=== PATIENT | female | born 1950 | race Caucasian/White ===

== ENCOUNTER → 2016-11-22 | Outpatient (CLI) | payer MEDICARE ==
--- NOTE | 2016-11-22 11:29 | MR ---
EXAMINATION TYPE: MR cervical spine wo con DATE OF EXAM: 11/22/2016 COMPARISON: CT soft tissue neck 03/07/2014 HISTORY: Neck pain,DDD TECHNIQUE: Multiplanar, multisequence images of the cervical spine were acquired. C2-C3: No evidence for degenerative disc disease. No disc bulge/herniation or protrusion. No Canal stenosis. Foramina are patent bilaterally. C3-C4: There is mild left-sided foraminal encroachment due to lateral extension of endplate disc comp lolly. No significant central stenosis or sizable disc herniation. C4-C5: Posterior extension in the right paracentral location with small posterior disc herniation cau ses some contact with the anterior cervical cord. Circumferential extension of endplate disc complex results in some mild left-sided foraminal encroachment. Axial images show some questionable hyperinte nsity within the cervical cord to the left midline although this is not identified with certainty and sagittal images. I question whether this may be artifactual. C5-C6: Posterior extension of endplate disc complex results in moderate central canal stenosis, left lateral posterior extension of endplate disc complex causes anterolateral mass effect on the thecal s ac, there is foraminal encroachment bilaterally due to circumferential extension of endplate disc com plex. Difficult to exclude some cord signal change. C6-C7: Posterior broad-based disc bulge causes minimal anterior mass effect on the thecal sac. C7-T1: No evidence for degenerative disc disease. No disc bulge/herniation or protrusion. No Canal stenosis. Foramina are patent bilaterally. Cervical segments are intact. There is minimal anterolisthesis grade 1 C2-3, C3-4, retrolisthesis gr pretty 1 C5-6, C6-7. Cervical vertebral bodies show preserved height. There is multilevel spondylosis w ith endplate discogenic marrow signal change, loss of disc height and signal is greatest at C4-5, C5- 6. Craniovertebral junction relationships are within normal limits. IMPRESSION: Multilevel degenerative disc disease, spinal stenosis, foraminal encroachment. Questionable cord sign al change may be artifactual as described. Correlate for possible myelopathy.
== END | disposition home or self-care (01) ==
LOC: RADMRIMAIN 10:41
PROVIDERS: ATTEND Family Medicine
DX: M48.02 Spinal stenosis, cervical region (principal); M50.30 Other cervical disc degeneration, unspecified cervical region
CPT/HCPCS: 72141

== ENCOUNTER → 2017-03-11 | Outpatient (CLI) | payer MEDICARE ==
--- NOTE | 2017-03-11 14:56 | BD ---
EXAMINATION TYPE: MG DEXA axial skeleton. DATE OF EXAM: 03/11/2017 COMPARISON: DEXA bone scan June 21, 2011 CLINICAL HISTORY: Osteoporosis per order. Postmenopausal female Height: 59 inches Weight: 182 FRAX RISK QUESTIONS: Alcohol (3 or more units per day): no Family History (Parent hip fracture): no Glucocorticoids (More than 3mos): no (Ex: prednisone, prednisolone, methylprednisolone, dexamethasone, and hydrocortisone). History of Fracture in Adulthood: no Secondary Osteoporosis: 1. Type 1 Diabetes: no 2. Hyperthyroidism: no 3. Menopause before 45: yes 4. Malnutrition: no 5. Chronic liver disease: no Rheumatoid Arthritis: no Current Tobacco Use: yes RISK FACTORS HISTORY OF: Hip Fracture (Right/Left): no Spine Fracture: no History of Wrist Fracture: no Surgery to Spine/Hip(right/left)/Wrist (right/left): left hip replacement When: 2004 Family History of Osteoporosis: no Active: yes Diet low in dairy products/other sources of calcium: yes Postmenopausal woman: total hysterectomy age 37 Lost more than 2 inches in height since high school: no Frequent falls: no Poor Health: no Hyperparathyroidism: no Adrenal Insufficiency: no MEDICATIONS: atenolol, water pil simvastatin, aspirin, vit d , multi-vit, ativan Additional History: EXAM MEASUREMENTS: Bone mineral densitometry was performed using the Endovention System. Bone mineral density as measured about the Lumbar spine is: ----- L1-L4(G/cm2): 1.184 T Score Values are as follows: ----- L2: -1.5 ----- L3: -0.5 ----- L4: 2.6 ----- L1-L4: 0.0 Bone mineral density has: increased 5.9 % since study of: 06.21.2011 Bone mineral density about the R hip (g/cm2): 0.923 T Score values are as follows: -----R Neck: -0.8 -----R Total: -1.0 Bone mineral density has: decreased -15.1 % since study of: 06.21.2011 IMPRESSION: Osteopenia (T Score between -2.5 and -1 as noted by T score values at 2 consecutive levels in the low back remains present. Bone density is noted however increased or improved from prior. There remains slightly increased risk of fracture and the patient may be considered for treatment. Re-Screen 2-5 ye ars. NOTE: T-SCORE=SD OF THE YOUNG ADULT MEAN.
--- NOTE | 2017-03-12 10:18 | MM ---
Reason for exam: screening (asymptomatic). Last mammogram was performed 1 year and 2 months ago. History: Patient is postmenopausal. Took hormonal contraceptives for 13 years. Physical Findings: A clinical breast exam by your physician is recommended on an annual basis and results should be correlated with mammographic findings. MG Screening Mammo w CAD Bilateral CC and MLO view(s) were taken. Prior study comparison: August 13, 2013, bilateral digital screening mammo w/CAD. There are scattered fibroglandular densities. Finding: There are typically benign round, linear calcifications in both breasts, left greater than right. There is no discrete abnormality. ASSESSMENT: Benign, BI-RAD 2 RECOMMENDATION: Routine screening mammogram of both breasts in 1 year.
== END | disposition home or self-care (01) ==
LOC: RADMAMWWP 11:41
PROVIDERS: ATTEND Family Medicine
DX: Z12.31 Encounter for screening mammogram for malignant neoplasm of breast (principal); M85.88 Other specified disorders of bone density and structure, other site
CPT/HCPCS: 77080; G0202

== ENCOUNTER → 2017-03-17 | Outpatient (CLI) | payer MEDICARE ==
--- NOTE | 2017-03-17 13:59 | XR ---
EXAMINATION TYPE: XR chest 2V DATE OF EXAM: 03/17/2017 COMPARISON: NONE HISTORY: Shortness of breath TECHNIQUE: Frontal and lateral views of the chest are obtained. FINDINGS: Scattered senescent parenchymal changes noted. Hyperinflation compatible with COPD. No evidence for infiltrate. No evidence for atelectasis. Heart size is stable. Mediastinal structures are stable and grossly unremarkable. No evidence for hilar prominence. Degenerative changes dorsal spine. IMPRESSION: 1. No evidence for acute pulmonary disease.
== END | disposition home or self-care (01) ==
LOC: RADXRMAIN 13:42
PROVIDERS: ATTEND Family Medicine
DX: Z01.818 Encounter for other preprocedural examination (principal)
CPT/HCPCS: 71020

== ENCOUNTER → 2017-08-01 | Outpatient (CLI) | payer MEDICARE ==
[2017-08-01 11:41] LABS: HCT 43.4 % (34.0-46.0); HGB 15.1 gm/dL (11.4-16.0); MCH 30.8 pg (25.0-35.0); MCHC 34.7 g/dL (31.0-37.0); MCV 88.8 fL (80.0-100.0); Mean Platelet Volume 6.6; Platelet Count 239 k/uL (150-450); RBC 4.89 m/uL (3.80-5.40); RDW 12.7 % (11.5-15.5); WBC 6.6 k/uL (3.8-10.6)
[2017-08-01 11:46] LABS: Appearance,Urine Clear (Clear); Bacteria,Urine Rare /hpf; Bilirubin,Urine Negative (Negative); Blood,Urine Trace (Negative); Color,Urine Yellow; Glucose,Urine (UA) Negative (Negative); Ketones,Urine Negative (Negative); Leukocyte Esterase,Urine Negative (Negative); Mucus,Urine Rare /hpf; Nitrite,Urine Negative (Negative); PH, Urine 7.5 (5.0-8.0); Protein,Urine Negative (Negative); RBC,Urine 5 /hpf (0-5); Specific Gravity,Urine 1.013 (1.001-1.035); Squamous Epithelial Cell,Urine <1 /hpf (0-4); Urobilinogen,Urine <2.0 mg/dL (<2.0); WBC,Urine 1 /hpf (0-5)
[2017-08-01 12:06] LABS: ALT 29 U/L (9-52); AST 26 U/L (14-36); Albumin 4.3 g/dL (3.5-5.0); Alkaline Phosphatase 83 U/L (38-126); Anion Gap 12 mmol/L; Blood Urea Nitrogen 16 mg/dL (7-17); Calcium 10.2 mg/dL (8.4-10.2); Carbon Dioxide 29 mmol/L (22-30); Chloride 100 mmol/L (98-107); Glucose 106 mg/dL (74-99); Potassium 4.7 mmol/L (3.5-5.1); Sodium 141 mmol/L (137-145); Total Bilirubin 0.8 mg/dL (0.2-1.3); Total Protein 7.2 g/dL (6.3-8.2)
[2017-08-01 12:11] LABS: INR 1.1 (<1.2); Partial Thromboplastin Time 23.1 sec (22.0-30.0); Prothrombin Time 10.4 sec (9.0-12.0)
== END | disposition home or self-care (01) ==
LOC: LABPAT 10:58
PROVIDERS: ATTEND Orthopaedic Surgery
DX: Z01.812 Encounter for preprocedural laboratory examination (principal); M16.11 Unilateral primary osteoarthritis, right hip; Z79.01 Long term (current) use of anticoagulants
CPT/HCPCS: 80053; 81001; 85027; 85610; 85730; 87070

== ENCOUNTER → 2018-03-05 | Outpatient (CLI) | payer MEDICARE ==
--- NOTE | 2018-03-05 15:12 | MR ---
EXAMINATION TYPE: MR brain wo/w con DATE OF EXAM: 03/05/2018 COMPARISON: NONE HISTORY: Dystonia / Tremor per order TECHNIQUE: Multiplanar, multisequence images of the brain and brainstem is performed without and with IV contras t, utilizing 8.5 mL intravenous Gadavist . FINDINGS: Diffusion weighted images demonstrate no evidence of a recent infarct or other diffusion ab normality. There is no worrisome extra-axial fluid collection. The ventricular system and cisternal spaces are normal in size and appearance. The brain volume is age appropriate. Cavum vergae is pres ent which is anatomical variant. There are few scattered foci of T2 hyperintensity seen throughout th e superficial and deep white matter. Approximately 6-8 small scattered lesions are seen. For referenc e there is 4 mm high right frontal lesion axial image 25. Midline structures demonstrate normal morphology. The craniocervical junction appears within normal limits. Post contrast images demonstrate no abnormal enhancement. Suspect hypoplastic left P1 segmen t with filling of P2 segment due to patent persistent posterior communicating artery. Normal variant. The dural venous sinuses appear patent. The visualized sinuses are clear and the globes are intact. IMPRESSION: Mild to minimal white matter changes most likely on basis of product of chronic small ves lindsey ischemic change in patient of this age. No suspicious enhancement is seen.
== END | disposition home or self-care (01) ==
LOC: RADMRIMAIN 11:23
PROVIDERS: ATTEND Physical Medicine & Rehabilitation
DX: R90.89 Other abnormal findings on diagnostic imaging of central nervous system (principal); M48.02 Spinal stenosis, cervical region; M50.11 Cervical disc disorder with radiculopathy, high cervical region; M43.12 Spondylolisthesis, cervical region; M47.22 Other spondylosis with radiculopathy, cervical region; R25.1 Tremor, unspecified
CPT/HCPCS: 70553; A9585

== ENCOUNTER → 2018-03-31 | Outpatient (CLI) | payer MEDICARE ==
--- NOTE | 2018-04-02 13:44 | MM ---
Reason for exam: screening (asymptomatic). Last mammogram was performed 1 year and 1 month ago. History: Patient is postmenopausal. Took hormonal contraceptives for 13 years. Physical Findings: A clinical breast exam by your physician is recommended on an annual basis and results should be correlated with mammographic findings. MG 3D Screening Mammo W/Cad Bilateral CC and MLO view(s) were taken. Prior study comparison: March 11, 2017, bilateral MG screening mammo w CAD. January 19, 2016, bilateral MG 3d screening mammo w/cad. The breast tissue is almost entirely fat. No significant changes when compared with prior studies. ASSESSMENT: Negative, BI-RAD 1 RECOMMENDATION: Routine screening mammogram of both breasts in 1 year.
== END ==
LOC: RADMAMWWP 16:32
PROVIDERS: ATTEND Family Medicine
DX: Z12.31 Encounter for screening mammogram for malignant neoplasm of breast (principal)
CPT/HCPCS: 77063; 77067

== ENCOUNTER → 2019-04-09 | Outpatient (CLI) | payer MEDICARE ==
[2019-04-09 10:37] LABS: African American GFR (CKD) >90 (>60 ml/min/1.73 sqM); Blood Urea Nitrogen 15 mg/dL (7-17); Non-African American GFR(CKD) 90 (>60 ml/min/1.73 sqM)
--- NOTE | 2019-04-09 18:12 | CT ---
EXAMINATION TYPE: CT abdomen pelvis w con DATE OF EXAM: 04/09/2019 COMPARISON: 01/24/2016 INDICATION: Microscopic hematuria. Left renal cyst. DLP: 1230.5 mGycm, Automated exposure control for dose reduction was used. CONTRAST: 100 mL of Isovue 300. Study performed with Oral Contrast TECHNIQUE: Axial images were obtained from above the diaphragm to the pubic rami in the axial plane a t 5 mm thick sections. Reconstructed images are reviewed on the computer in the coronal plane. FINDINGS: Limited CT sections are obtained the lung bases. The lung bases are clear. Coronary artery calcific ation is present. CT ABDOMEN: Liver: There may be some mild fatty infiltration. There is a calcification adjacent which may be a gr anuloma at the lung base or calcification along the diaphragm. Image 13 series 3 Spleen: Normal Pancreas: Normal Adrenal glands: The adrenal glands are normal. Gallbladder: Few small gallstones are present. Kidneys: No masses are evident. No hydronephrosis is present. Small cortical renal cysts on the pos terior left kidney. Delayed images were obtained through the kidneys, which remain unremarkable. Aorta: Vascular calcification is within the aorta. Inferior vena cava: Normal. CT PELVIS: There is limitation due to the lower pelvis due to beam hardening artifact from bilateral hip prostheses. A few diverticular changes are noted within the sigmoid colon. Note is made of a very tiny mesenteric fat containing periumbilical hernia. Loops of bowel within the abdomen and pelvis are normal. There are loops of bowel which are incom pletely distended or lack oral contrast limiting their evaluation. Appendix: Normal as visualized. Urinary bladder: Normal. Genitourinary structures: Uterus and ovaries are not identified. Osseous structures: No suspicious lytic or sclerotic lesions. IMPRESSIONS: 1. Mild fatty infiltration of the liver. 2. Cholelithiasis. 3. Left renal cyst 4. Diverticulosis
== END | disposition home or self-care (01) ==
LOC: RADCTMAIN 09:44
PROVIDERS: ATTEND Urology
DX: K76.0 Fatty (change of) liver, not elsewhere classified (principal); K80.20 Calculus of gallbladder without cholecystitis without obstruction; K57.90 Diverticulosis of intestine, part unspecified, without perforation or abscess without bleeding; N28.1 Cyst of kidney, acquired; R31.1 Benign essential microscopic hematuria; Z88.2 Allergy status to sulfonamides
CPT/HCPCS: 82565; 84520; 74177; 36415; Q9967 ×2

== ENCOUNTER → 2019-05-19 | Outpatient (CLI) | payer MEDICARE ==
--- NOTE | 2019-05-20 13:52 | MM ---
Reason for exam: screening (asymptomatic). Last mammogram was performed 1 year and 2 months ago. History: Patient is postmenopausal. Took hormonal contraceptives for 13 years. Physical Findings: A clinical breast exam by your physician is recommended on an annual basis and results should be correlated with mammographic findings. MG 3D Screening Mammo W/Cad Bilateral CC and MLO view(s) were taken. Prior study comparison: March 31, 2018, bilateral MG 3d screening mammo w/cad. March 11, 2017, bilateral MG screening mammo w CAD. There are scattered fibroglandular densities. There is no discrete abnormality. No significant changes when compared with prior studies. ASSESSMENT: Negative, BI-RAD 1 RECOMMENDATION: Routine screening mammogram of both breasts in 1 year.
== END | disposition home or self-care (01) ==
LOC: RADMAMWWP 16:27
PROVIDERS: ATTEND Family Medicine
DX: Z12.31 Encounter for screening mammogram for malignant neoplasm of breast (principal)
CPT/HCPCS: 77063; 77067

== ENCOUNTER → 2020-01-12 | Outpatient (CLI) | payer MEDICARE ==
[2020-01-12 15:33] LABS: HCT 47.2 % (34.0-46.0); HGB 15.6 gm/dL (11.4-16.0); MCH 30.3 pg (25.0-35.0); MCHC 33.1 g/dL (31.0-37.0); MCV 91.7 fL (80.0-100.0); Mean Platelet Volume 6.5; Platelet Count 244 k/uL (150-450); RBC 5.14 m/uL (3.80-5.40); WBC 6.8 k/uL (3.8-10.6)
[2020-01-12 15:45] LABS: African American GFR (CKD) >90 (>60 ml/min/1.73 sqM); Anion Gap 6 mmol/L; Blood Urea Nitrogen 12 mg/dL (7-17); Carbon Dioxide 29 mmol/L (22-30); Chloride 99 mmol/L (98-107); Non-African American GFR(CKD) >90 (>60 ml/min/1.73 sqM); Potassium 4.1 mmol/L (3.5-5.1); Sodium 134 mmol/L (137-145)
== END | disposition home or self-care (01) ==
LOC: LABPAT 14:26
PROVIDERS: ATTEND Internal Medicine Interventional Cardiology
DX: Z01.818 Encounter for other preprocedural examination (principal); I25.10 Atherosclerotic heart disease of native coronary artery without angina pectoris
CPT/HCPCS: 80051; 82565; 84520; 85027

== ENCOUNTER → 2020-06-22 | Outpatient (CLI) | payer MEDICARE ==
[2020-06-22 18:28] LABS: Albumin 4.2 g/dL (3.80-4.90); Albumin/Globulin Ratio 1.4 (1.60-3.17); Anion Gap 8.9 mmol/L (4.00-12.00); BUN/Creat Ratio 21.43 Ratio (12.00-20.00); Calcium 10.1 mg/dL (8.7-10.3); Carbon Dioxide 29.1 mmol/L (21.6-31.8); Chol/HDL Ratio 3.07; LDL Cholesterol,Calculated 74.2 mg/dL (0.0-131.0); Non-African American GFR(CKD) 87.2 (60.0-200.0); Potassium 3.9 mmol/L (3.5-5.5); Total Bilirubin 1.3 mg/dL (0.3-1.2); Total Protein 7.2 g/dL (6.2-8.2); VLDL Calculation 37.8 mg/dL (5.00-40.00)
== END | disposition home or self-care (01) ==
LOC: LABWHC1 08:13
PROVIDERS: ATTEND Internal Medicine Interventional Cardiology
DX: E78.2 Mixed hyperlipidemia (principal)
CPT/HCPCS: 36415; 80053; 80061

== ENCOUNTER → 2020-08-18 | Outpatient (CLI) | payer MEDICARE ==
--- NOTE | 2020-08-18 12:35 | CTL ---
EXAMINATION TYPE: CT Low Dose Lung DATE OF EXAM ORDERED: 08/18/2020 COMPARISON: None HISTORY: . Low Dose CT Lung Screening CT DLP: [address] CTDI: 2.22 mGy IV CONTRAST USED: None. SCREENING VISIT: First visit COMPARISON: None. TECHNIQUE: Low dose computed tomography scan was performed through the chest at 1 millimeter thick se ctions and reconstructed images in the coronal plane at [address] DIAGNOSTIC QUALITY: Satisfactory FINDINGS: LUNG NODULES: 6 mm nodule right upper lobe posteriorly image #10. 3 mm nodule right lower lobe image #17. 3 mm nodule right mid lung zone image 23. Calcified nodule left lower lobe image 38. LUNGS: COPD: Severity: None Fibrosis: Severity:None Lymph nodes: None Other findings: None RIGHT PLEURAL SPACE: Effusion: None Calcification: None Thickening: None Pneumothorax: None LEFT PLEURAL SPACE: Effusion: None Calcification: None Thickening: None Pneumothorax: None HEART: Heart Size: Mildly enlarged Coronary calcification: Moderate Pericardial effusion: None OTHER FINDINGS: Upper abdomen: Cholelithiasis. Bony thorax: Degenerative changes Supraclavicular region: No significant abnormalityOther: No significant abnormalityI IMPRESSION: Benign FOLLOW UP CT CHEST RECOMMENDATION: Follow-up screening in one year CT LUNG RAD: LUNG RAD CATEGORY 2 benign appearance
== END | disposition home or self-care (01) ==
LOC: RADCTMAIN 11:18
PROVIDERS: ATTEND Family Medicine
DX: Z12.2 Encounter for screening for malignant neoplasm of respiratory organs (principal)
CPT/HCPCS: 71271

== ENCOUNTER → 2021-02-01 | Outpatient (CLI) | payer MEDICARE ==
[2021-02-02 03:01] LABS: African American GFR (CKD) 105.1 (60.0-200.0); Albumin 4.6 g/dL (3.8-4.9); Albumin/Globulin Ratio 1.87 (1.60-3.17); Anion Gap 14.6 mmol/L (4.00-12.00); BUN/Creat Ratio 15.57 Ratio (12.00-20.00); Blood Urea Nitrogen 9.7 mg/dL (9.0-27.0); Calcium 9.3 mg/dL (8.7-10.3); Carbon Dioxide 24.9 mmol/L (21.6-31.8); Chol/HDL Ratio 3.64 Ratio; Globulin 2.5 g/dL (1.6-3.3); HDL Cholesterol 51.1 mg/dL (40.00-60.00); LDL Cholesterol,Calculated 80.5 mg/dL (0.0-131.0); Non-African American GFR(CKD) 90.7 (60.0-200.0); Total Bilirubin 0.9 mg/dL (0.30-1.20); VLDL Calculation 54.4 mg/dL (5.00-40.00)
== END | disposition home or self-care (01) ==
LOC: LABWHC1 11:25
PROVIDERS: ATTEND Internal Medicine Interventional Cardiology
DX: E78.2 Mixed hyperlipidemia (principal)
CPT/HCPCS: 36415; 80053; 80061

== ENCOUNTER → 2021-08-13 | Outpatient (CLI) | payer MEDICARE ==
[2021-08-13 18:11] LABS: ALT 16 U/L (8-44); AST 25 U/L (13-35); Chol/HDL Ratio 3.08 Ratio; LDL Cholesterol,Calculated 76.8 mg/dL (0.0-131.0)
== END | disposition home or self-care (01) ==
LOC: LABWHC1 11:35
PROVIDERS: ATTEND Nurse Practitioner Adult Health
DX: E78.2 Mixed hyperlipidemia (principal)
CPT/HCPCS: 36415; 80061; 84450; 84460

== ENCOUNTER → 2021-09-21 | Outpatient (CLI) | payer MEDICARE ==
--- NOTE | 2021-09-25 08:23 | MM ---
Reason for Exam: Screening (asymptomatic). Last mammogram was performed 2 year(s) and 4 month(s) ago. Patient History: Menarche at age 11. First Full-Term at age 20. Left ovary removed at age 38. Right ovary removed at age 38. Hysterectomy at age 38. Postmenopausal. Patient used Hormonal Contraceptives for 13 years. Risk Values: Maria De Jesus 5 year model risk: 1.6%. NCI Lifetime model risk: 4.1%. Film Views: Bilateral CC views were taken. Bilateral MLO views were taken. Prior Study Comparison: 03/11/2017 Bilateral Screening Mammogram, [facility]. 03/31/2018 Bilateral Screening Mammogram, [facility]. 05/19/2019 Bilateral Screening Mammogram, [facility]. Tissue Density: There are scattered fibroglandular densities. Findings: Analyzed By CAD. There are regional benign appearing round and linear calcifications anteriorly in the left breast redemonstrated. Stable chronic nodularity centrally in the left breast. There is no suspicious group of microcalcifications or new suspicious mass in either breast. Overall Assessment: Benign, BI-RAD 2 Management: Screening Mammogram of both breasts in 1 year. A clinical breast exam by your physician is recommended on an annual basis and results should be correlated with mammographic findings. Electronically signed and approved by: Marvin Simmons M.D.
== END | disposition home or self-care (01) ==
LOC: RADMAMWWP 15:47
PROVIDERS: ATTEND Family Medicine
DX: Z12.31 Encounter for screening mammogram for malignant neoplasm of breast (principal); Z78.0 Asymptomatic menopausal state
CPT/HCPCS: 77063; 77067

== ENCOUNTER → 2021-12-07 | Outpatient (CLI) | payer MEDICARE ==
--- NOTE | 2021-12-07 13:33 | BD ---
EXAMINATION TYPE: Axial Bone Density DATE OF EXAM: 12/07/2021 COMPARISON: 03.11.2017 CLINICAL HISTORY: 71 years year old Female. ICD-10 CODE: M85.80 OSTEOPENIA Height: 59IN Weight: 195 FRAX RISK QUESTIONS: Secondary Osteoporosis: 3. Menopause before 45: YES TOTAL HYST AT 33 Current Tobacco Use: YES RISK FACTORS HISTORY OF: Surgery to Spine/Hip(right/left)/Wrist (right/left): RENITA HIP REPLACEMENT When: 2004 AND 2016 Active: NO Postmenopausal woman: YES Lost more than 2 inches in height since high school: YES Poor Health: FAIR MEDICATIONS: Additional Medications: BP MEDS, CHOLESTEROL MEDS, CARDIAC MEDS, CALCIUM, VITAMIN D Additional History: EXAM MEASUREMENTS: Bone mineral densitometry was performed using the Drawn to Scale System. Bone mineral density as measured about the Lumbar spine is: ----- L1-L4(G/cm2): 1.130 T Score Values are as follows: ----- L1: -1.3 ----- L2: -1.3 ----- L3: 0.6 ----- L4: 0.4 ----- L1-L4: -0.4 Bone mineral density has: Increased 6.0% since study of: 03.11.2017 Bone mineral density about the L Wrist (g/cm2): 0.543 T Score values are as follows: -----Dist. R+U: -1.9 -----Prox. R+U: -1.1 -----Radius total: -1.9 FIRST WRIST DEXA IMPRESSION: Osteopenia (T Score between -2.5 and -1). There is slightly increased risk of fracture and the patient may be considered for treatment. Re-Screen 2-5 years. NOTE: T-SCORE=SD OF THE YOUNG ADULT MEAN.
== END | disposition home or self-care (01) ==
LOC: RADBDWWP 11:11
PROVIDERS: ATTEND Family Medicine
DX: M85.89 Other specified disorders of bone density and structure, multiple sites (principal)
CPT/HCPCS: 77080

== ENCOUNTER → 2021-12-12 | Outpatient (CLI) | payer MEDICARE ==
--- NOTE | 2021-12-12 13:49 | CTL ---
EXAMINATION TYPE: CT Low Dose Lung DATE OF EXAM ORDERED: 12/12/2021 HISTORY: Z87.891 personal hx tobacco use. Lung cancer screening CT DLP: 83.[address] CTDI: 2.4 mGy Automated exposure control for dose reduction was used. SCREENING VISIT: Follow-up COMPARISON: CT low dose lung screening 08/18/2020. TECHNIQUE: Low dose computed tomography scan was performed through the chest at 1 mm thick sections a nd reconstructed images in multiple planes at 1 mm and [address] DIAGNOSTIC QUALITY: Satisfactory FINDINGS: LUNG NODULES: Stable 6 pulmonary right upper lobe posteriorly pulmonary nodule (series 4, image 42). Stable right lower lobe 3 mm pulmonary nodule (series 4, image 73). Stable 3 mm right midlung pulmona ry nodule (series 4, image 112). Calcified 3 mm nodule within the left lower lobe (series 4, image 18 7). No new or enlarging pulmonary nodules. LUNGS: COPD: Severity: None Fibrosis: Severity: None Lymph nodes: None Other findings: Nonspecific left lower lobe subpleural reticular opacities. RIGHT PLEURAL SPACE: Effusion: None Calcification: None Thickening: None Pneumothorax: None LEFT PLEURAL SPACE: Effusion: None Calcification: None Thickening: None Pneumothorax: None HEART: Heart Size: Mildly enlarged. Coronary Calcification: Moderate Pericardial Effusion: None OTHER FINDINGS: Upper abdomen: Cholelithiasis. Bony thorax: Degenerative changes of the visualized spine. Supraclavicular region: None Other: 1.2 cm hypodense left thyroid lobe nodule. IMPRESSION: Stable pulmonary nodules measuring up to 6 mm. No new or enlarging pulmonary nodules. CT LUNG RAD AND CT CHEST RECOMMENDATION: Lung-Rad 2 Benign Appearance or Behavior: Continue annual sc reening with LDCT in 12 months. S Modifier (other clinically significant findings): None
== END | disposition home or self-care (01) ==
LOC: RADCTMAIN 13:00
PROVIDERS: ATTEND Family Medicine
DX: Z12.2 Encounter for screening for malignant neoplasm of respiratory organs (principal); R91.8 Other nonspecific abnormal finding of lung field; Z87.891 Personal history of nicotine dependence
CPT/HCPCS: 71271

== ENCOUNTER → 2022-02-15 | Outpatient (CLI) | payer MEDICARE ==
[2022-02-15 18:07] LABS: ALT 19 U/L (8-44); AST 20 U/L (13-35); African American GFR (CKD) 100.3 (60.0-200.0); Albumin 4.7 g/dL (3.8-4.9); Albumin/Globulin Ratio 1.88 (1.60-3.17); Alkaline Phosphatase 104 U/L (41-126); BUN/Creat Ratio 18.86 Ratio (12.00-20.00); Blood Urea Nitrogen 13.2 mg/dL (9.0-27.0); Calcium 9.7 mg/dL (8.7-10.3); Carbon Dioxide 29.1 mmol/L (20.0-27.5); Chloride 95 mmol/L (96-109); Chol/HDL Ratio 3.07 Ratio; Globulin 2.5 g/dL (1.6-3.3); Glucose 113 mg/dL (70-110); LDL Cholesterol,Calculated 82.4 mg/dL (0.0-131.0); Non-African American GFR(CKD) 86.6 (60.0-200.0); Potassium 4.9 mmol/L (3.5-5.5); Sodium 135 mmol/L (135-145); Total Protein 7.2 g/dL (6.2-8.2)
== END | disposition home or self-care (01) ==
LOC: LABWHC1 11:27
PROVIDERS: ATTEND Internal Medicine Interventional Cardiology
DX: I10 Essential (primary) hypertension (principal); E78.2 Mixed hyperlipidemia
CPT/HCPCS: 36415; 80053; 80061

== ENCOUNTER → 2022-08-19 | Outpatient (CLI) | payer MEDICARE ==
--- NOTE | 2022-08-20 07:11 | US ---
EXAMINATION TYPE: US axilla LT DATE OF EXAM: 08/19/2022 COMPARISON: NONE CLINICAL INDICATION: Female, 72 years old with history of R59.0 AXILLARY LYMPHADENOPATHY; Pt states s he has had a lump on her left armpit for months and it varies in size. She states she has squeezed it before and a white pus comes out TECHNIQUE: Scanned in area of lump. I could see it bulging out when she lifted her left arm. FINDINGS: Hypoechoic nonvascular area with posterior enhancement visualized in area of lump measurin g 0.8 x 0.7 x 0.4cm IMPRESSION: Probable sebaceous cyst however strict clinical correlation is advised.
== END | disposition home or self-care (01) ==
LOC: RADUSWWP 16:54
PROVIDERS: ATTEND Family Medicine
DX: R59.0 Localized enlarged lymph nodes (principal)

== ENCOUNTER → 2022-09-04 | Outpatient (CLI) | payer MEDICARE ==
[2022-09-04 21:09] LABS: ALT 29 U/L (8-44); AST 25 U/L (13-35); Chol/HDL Ratio 2.58 Ratio; LDL Cholesterol,Calculated 72.4 mg/dL (0.0-131.0)
== END | disposition home or self-care (01) ==
LOC: LABWHC1 12:03
PROVIDERS: ATTEND Internal Medicine Interventional Cardiology
DX: E78.2 Mixed hyperlipidemia (principal)
CPT/HCPCS: 36415; 80061; 84450; 84460

== ENCOUNTER → 2022-09-24 | Outpatient (CLI) | payer MEDICARE ==
--- NOTE | 2022-09-25 19:27 | MM ---
Reason for Exam: Screening (asymptomatic). Last screening mammogram was performed 12 month(s) ago. Patient History: Menarche at age 11. First Full-Term at age 20. Left ovary removed at age 38. Right ovary removed at age 38. Hysterectomy at age 38. Postmenopausal. Patient used Hormonal Contraceptives for 13 years. Risk Values: Maria De Jesus 5 year model risk: 1.6%. NCI Lifetime model risk: 3.9%. Prior Study Comparison: 03/31/2018 Bilateral Screening Mammogram, [facility]. 05/19/2019 Bilateral Screening Mammogram, [facility]. 09/21/2021 Bilateral MG 3D screening mammo w/cad, [facility]. Tissue Density: There are scattered fibroglandular densities. Findings: Analyzed By CAD. Redemonstrated benign secretory calcifications, left greater than right. There is no suspicious group of microcalcifications or new suspicious mass in either breast. Overall Assessment: Benign, BI-RAD 2 Management: Screening Mammogram of both breasts in 1 year. . Patient should continue monthly self-breast exams. A clinical breast exam by your physician is recommended on an annual basis. This exam should not preclude additional follow-up of suspicious palpable abnormalities. Note on Maria De Jesus scores and lifetime risk: 1. A Maria De Jesus score greater than 3% is considered moderate risk. If this is the case, consider specialist referral to assess eligibility for a risk reducing agent. 2. If overall lifetime risk for the development of breast cancer is 20% or higher, the patient may qualify for future screening with alternating mammogram and breast MRI. Electronically signed and approved by: Greta Avelar M.D. Radiologist
== END | disposition home or self-care (01) ==
LOC: RADMAMWWP 14:21
PROVIDERS: ATTEND Family Medicine
DX: Z12.31 Encounter for screening mammogram for malignant neoplasm of breast (principal); Z78.0 Asymptomatic menopausal state
CPT/HCPCS: 77063; 77067

== ENCOUNTER → 2022-12-19 | Outpatient (CLI) | payer MEDICARE ==
--- NOTE | 2022-12-19 13:02 | CTL ---
EXAMINATION TYPE: CT Low Dose Lung DATE OF EXAM ORDERED: 12/19/2022 HISTORY: Z12.2 ENCNTR SCREEN FOR MALIGNANT NEOZ87.891,Z72.0. Lung cancer screening CT DLP: [address] CTDI: 26 mGy Automated exposure control for dose reduction was used. SCREENING VISIT: Follow-up COMPARISON: CT low-dose lung cancer screening 12/12/2021, 08/18/2020 TECHNIQUE: Low dose computed tomography scan was performed through the chest at 1 mm thick sections a nd reconstructed images in multiple planes at 1 mm and [address] DIAGNOSTIC QUALITY: Satisfactory FINDINGS: LUNG NODULES: Stable 6 mm right upper lobe posteriorly pulmonary nodule (series 8, image 10). Stable right lower lobe 3 mm pulmonary nodule (series 8, image 16). Stable 3 mm right midlung pulmonary nodu le (series 8, image 22). Calcified 3 mm nodule within the left lower lobe (series 8, image 36). No ne w or enlarging pulmonary nodules. LUNGS: COPD: Severity: None Fibrosis: Severity: None Lymph nodes: None Other findings: None RIGHT PLEURAL SPACE: Effusion: None Calcification: None Thickening: None Pneumothorax: None LEFT PLEURAL SPACE: Effusion: None Calcification: None Thickening: None Pneumothorax: None HEART: Heart Size: Mildly enlarged. Coronary Calcification: Moderate Pericardial Effusion: None OTHER FINDINGS: Upper abdomen: Cholelithiasis. Bony thorax: Degenerative changes of the visualized spine. No acute osseous abnormality. Supraclavicular region: None Other: None IMPRESSION: Stable pulmonary nodules measuring up to 6 mm. No new or enlarging pulmonary nodules. CT LUNG RAD AND CT CHEST RECOMMENDATION: Lung-Rad 2 Benign Appearance or Behavior: Continue annual sc reening with LDCT in 12 months. S Modifier (other clinically significant findings): None
== END | disposition home or self-care (01) ==
LOC: RADCTMAIN 12:12
PROVIDERS: ATTEND Family Medicine
DX: Z12.2 Encounter for screening for malignant neoplasm of respiratory organs (principal); F17.210 Nicotine dependence, cigarettes, uncomplicated; R91.8 Other nonspecific abnormal finding of lung field
CPT/HCPCS: 71271

== ENCOUNTER → 2023-03-07 | Outpatient (CLI) | payer MEDICARE ==
[2023-03-07 18:20] LABS: ALT 29 U/L (8-44); AST 25 U/L (13-35); Albumin 4.5 g/dL (3.8-4.9); Albumin/Globulin Ratio 2.14 Ratio (1.60-3.17); Alkaline Phosphatase 117 U/L (41-126); BUN/Creat Ratio 15.43 Ratio (12.00-20.00); Blood Urea Nitrogen 10.8 mg/dL (9.0-27.0); Calcium 9.6 mg/dL (8.7-10.3); Carbon Dioxide 27.3 mmol/L (21.6-31.8); Chloride 101 mmol/L (96-109); Chol/HDL Ratio 2.83 Ratio; Globulin 2.1 g/dL (1.6-3.3); Glucose 126 mg/dL (70-110); LDL Cholesterol,Calculated 70.9 mg/dL (0.0-131.0); Potassium 4.6 mmol/L (3.5-5.5); Sodium 140 mmol/L (135-145); Total Bilirubin 0.9 mg/dL (0.3-1.2); Total Protein 6.6 g/dL (6.2-8.2)
== END | disposition home or self-care (01) ==
LOC: LABWHC1 13:16
PROVIDERS: ATTEND Internal Medicine Interventional Cardiology
DX: E78.2 Mixed hyperlipidemia (principal)
CPT/HCPCS: 36415; 80053; 80061

== ENCOUNTER → 2023-07-02 | Outpatient (CLI) | payer MEDICARE ==
--- NOTE | 2023-07-03 12:54 | MR ---
EXAMINATION TYPE: MR lumbar spine wo con DATE OF EXAM: 07/02/2023 2:30 PM COMPARISON: NONE HISTORY: Low back pain, fall Multiplanar, MultiSpin echo imaging of the lumbar spine was performed. Mild acute inferior endplate compression fracture involving T12 with loss of height of less than 5%. No bony retropulsion. L1-L2: Normal disc appearance without desiccation. No herniation, protrusion or disc bulging. No ca nal stenosis is present. Foramina are patent bilaterally. L2-L3: Normal disc appearance without desiccation. No herniation, protrusion or disc bulging. No ca nal stenosis is present. Foramina are patent bilaterally. L3-L4: Moderate disc desiccation. Posterior disc bulge is mild effacement ventral thecal sac. No evid ence for herniation or central stenosis. Neural foramina are patent bilaterally. L4-L5: Moderate disc desiccation. Posterior disc bulge is mild effacement ventral thecal sac. No evid ence for herniation or central stenosis. Neural foramina are patent bilaterally. L5-S1: Moderate disc desiccation. Posterior disc bulge is mild effacement ventral thecal sac. No evid ence for herniation or central stenosis. Neural foramina are patent bilaterally. Grade 1 retrolisthes is measuring 4 mm L5 on S1. Lumbar segments are intact. No paraspinal masses are identified. Conus medullaris has a normal appe arance. IMPRESSION: 1. Mild acute inferior endplate compression fracture involving T12 with loss of height of less than 5 %. No bony retropulsion. 2. Multilevel degenerative disc disease and disc bulging.
== END | disposition home or self-care (01) ==
LOC: RADMRIMAIN 12:59
PROVIDERS: ATTEND Physical Medicine & Rehabilitation
DX: S22.080A Wedge compression fracture of T11-T12 vertebra, initial encounter for closed fracture (principal); M51.36 Other intervertebral disc degeneration, lumbar region
CPT/HCPCS: 72148

== ENCOUNTER → 2023-09-16 | Outpatient (CLI) | payer MEDICARE ==
[2023-09-16 20:48] LABS: ALT 31 U/L (8-44); AST 25 U/L (13-35); Chol/HDL Ratio 2.63 Ratio
== END | disposition home or self-care (01) ==
LOC: LABWHC1 13:55
PROVIDERS: ATTEND Internal Medicine Interventional Cardiology
DX: E78.2 Mixed hyperlipidemia (principal)
CPT/HCPCS: 36415; 80061; 84450; 84460

== ENCOUNTER → 2023-12-08 | Outpatient (CLI) | payer MEDICARE | END | disposition home or self-care (01) | LOC: LABWHC1 15:48 | PROVIDERS: ATTEND Orthopaedic Surgery | CPT/HCPCS: 87070 ==

== ENCOUNTER 2023-12-22 07:13 | Day surgery (SDC) | payer MEDICARE ==
[~2023-12-22 07:13] MED LIST: TRANEXAMIC 1,000 MG/100ML-NACL 1,000 MG in SALINE 1 100ML.BAG IVPB PRN
[2023-12-22] MEDS: ACETAMINOPHEN TAB 500 MG TAB PO PRN (08:12)
[2023-12-22] MEDS: MELOXICAM 7.5 MG TAB PO PRN (08:13)
[2023-12-22] MEDS: GABAPENTIN 300 MG CAP PO PRN (08:13)
[2023-12-22] MEDS: ONDANSETRON 4 MG/2 ML VIAL IVP PRN (08:14)
[2023-12-22] MEDS: DEXAMETHASONE SOD PHOSPHATE 4 MG/ML 1 ML VIAL IVP STA (08:15)
[2023-12-22] MEDS: LACTATED RINGERS 1,000 ML BAG IV STA (08:15)
[2023-12-22] MEDS: IV FLUID CONTINUATION 1,000 ML IV ONE (08:18)
[2023-12-22] MEDS ORDERED: HYDROmorphone 0.5 MG/0.5 ML SYRINGE IVP PRN ×3 (08:40→09:12)
[2023-12-22] MEDS ORDERED: METOCLOPRAMIDE 5 MG/ML 2 ML VIAL IVP PRN (08:40)
[2023-12-22] MEDS ORDERED: LIDOCAINE 1% (10MG/ML) FOR IV START INTRADERMA PRN (08:40)
[2023-12-22] MEDS: MIDAZOLAM 2 MG/2 ML VIAL IVP ONE (09:10)
[2023-12-22] MEDS: fentaNYL (PF) 50 MCG/ML 2 ML AMP IVP ONE (09:10)
[2023-12-22] MEDS ORDERED: NA PHOS,M-B/NA PHOS,DI-BA 133 ML ENEMA RECTAL PRN (09:12)
[2023-12-22] MEDS ORDERED: NALOXONE 0.4 MG/ML 1 ML VIAL IV PRN (09:12)
[2023-12-22] MEDS ORDERED: ONDANSETRON 4 MG/2 ML VIAL IVP PRN (09:12)
[2023-12-22] MEDS ORDERED: bisacodyL 10 MG SUPP RECTAL PRN (09:12)
[2023-12-22] MEDS ORDERED: MAGNESIUM HYDROXIDE 2,400 MG/30 ML CUP PO PRN (09:12)
--- NOTE | 2023-12-22 09:37 | P.ANPRN ---
Procedure Note - Anesthesia - Nerve Block Performed Right Adductor Canal Infusion Time Out Performed: Yes ([id number]) Date of Procedure: 12/22/23 Procedure Start Time: 09:11 Procedure Stop Time: 09:16 Location of Patient: PreOp Indication: Acute Post-Operative Pain, Requested by Surgeon Specifically requested for management of pain by DrHardeep: Hernan Ortiz Sedation Type: Sedate with meaningful contact maintained Preparation: Sterile Prep, Sterile Dressing Position: Supine Catheter Depth at Skin (cm): 9 Catheter: Indwelling Needle Types: Pajunk Needle Gauge: 18 Ultrasound used to visualize needle placement: Yes Ultrasound used to observe medication spread: Yes Injectate: 0.5% Ropivacaine (see comment for volume) (15cc +10cc nacl pf) Blood Aspirated: No Pain Paresthesia on Injection Noted: No Resistance on Injection: Normal Image Stored and Saved: Yes Events: Uneventful and Well Tolerated
--- NOTE | 2023-12-22 09:38 | P.ANPRN ---
Procedure Note - Anesthesia - Nerve Block Performed Right iPack Single Time Out Performed: Yes ([id number]) Date of Procedure: 12/22/23 Procedure Start Time: :17 Procedure Stop Time: :20 Location of Patient: PreOp Indication: Acute Post-Operative Pain, Requested by Surgeon Specifically requested for management of pain by DrHardeep: Hernan Ortiz Sedation Type: Sedate with meaningful contact maintained Preparation: Sterile Prep Position: Supine Catheter: None Needle Types: Pajunk Needle Gauge: 21 Ultrasound used to visualize needle placement: Yes Ultrasound used to observe medication spread: Yes Injectate: 0.5% Ropivacaine (see comment for volume) (15cc+10cc nacl pf) Blood Aspirated: No Pain Paresthesia on Injection Noted: No Resistance on Injection: Normal Image Stored and Saved: Yes Events: Uneventful and Well Tolerated
[2023-12-22] MEDS ORDERED: PROPOFOL 10 MG/ML 20 ML VIAL IV ONE (09:41)
[2023-12-22] MEDS ORDERED: TRANEXAMIC 1,000 MG/100ML-NACL PREMIX BAG ONE (09:41)
[2023-12-22] MEDS ORDERED: MIDAZOLAM 2 MG/2 ML VIAL ONE (09:41)
[2023-12-22] MEDS ORDERED: ROPIVACAINE 5 MG/ML 30 ML VIAL ONE (09:41)
[2023-12-22] MEDS ORDERED: PHENYLEPHRINE 10 MG/ML VIAL ONE (09:41)
[2023-12-22] MEDS: ceFAZolin 1,000 MG in SODIUM CHLORIDE 0.9% 1,000 ML IRRIGATION ONE (09:45)
[2023-12-22] MEDS: LACTATED RINGERS 1,000 ML IV ONE (10:33)
--- NOTE | 2023-12-22 11:01 | P.OP ---
Date of Procedure: 12/22/23 Preoperative Diagnosis: Severe osteoarthritis right knee Postoperative Diagnosis: Severe osteoarthritis right knee Procedure(s) Performed: Right total knee arthroplasty Implants: Valdez [employer] Nephew Journey II CR Oxinium cruciate retaining femoral component size 3, right [employer] Journey nonporous tibial baseplate size 2, right [employer] Journey II, XLPE Deep Dished articular insert, size 13 mm, Size 1-2, right [employer] Journey Liberty II resurfacing patellar component, oval, 29 mm All components were cemented using Palacos R bone cement The articulation is Oxinium on polyethylene Anesthesia: spinal Surgeon: Hernan Ortiz Guest Specialist #1: Earnestine Bunch Estimated Blood Loss (ml): 25 Pathology: none sent Condition: stable Disposition: PACU Indications for Procedure: The patient's knee is end-stage, and conservative management has failed. The operation of knee replacement has been discussed at length in the office, as well as potential risks and complications. These are inclusive of, but not limited to: Infection, bleeding, scarring, discomfort, stiffness, blood vessel and nerve damage, need for further surgery, failure to relieve symptoms, persistence, recurrence, or worsening of problems, loosening, dislocation, wear, blood clot, pulmonary embolism, , gait dysfunction, stiffness, and other risks as discussed in the office. Patient elects to proceed and the consent form has been signed. Operative Findings: The operative findings are consistent with severe osteoarthritis of the right knee Description of Procedure: The patient was seen in the preoperative area, the consent was reviewed and the operative site was marked with a skin marker. The patient verified the procedure and the operative site. An adductor canal pain catheter and an iPACK block were placed by anesthesia in the preoperative area. The patient was then brought to the operating room and positioned on the operating room table in the supine position. Preoperative antibiotics and a gram of tranexamic acid were given intravenously. A spinal anesthetic was administered by the anesthesia department. Care was taken to make sure that all pressure points were adequately padded. A tourniquet was placed on the upper thigh and the lower extremity was prepped with ChloraPrep and draped in usual sterile fashion. A universal time-out was then performed which confirmed the patient's name, surgical site, ALLERGIES, and consent. The lower extremity was then exsanguinated and tourniquet was inflated to 250 mmHg. A standard anterior midline approach to the knee was performed. The skin and subcutaneous tissue were sharply dissected down to the patellar tendon. A medial parapatellar arthrotomy was then performed. The knee was then extended, the patellar was everted, and the knee was flexed. The infra-patellar fat pad was removed in order to enhance exposure. The anterior horns of both menisci were excised, and a release was performed to the posterior medial aspect of the knee. On gross visual inspection, there was complete loss of articular cartilage in the medial and patellofemoral joint spaces. There was also significant cartilage damage in the lateral compartment. There were multiple periarticular osteophytes globally about the knee which were then removed with a Ronguer. The femoral canal was then opened with the 9.5 mm intramedullary drill. The 8 mm intramedullary jacquie was then inserted into the femoral canal with the distal femoral cutting guide set for 5 of valgus. The distal femoral cutting block was then pinned in place. The intramedullary jacquie was then removed, and the distal femur was then cut. The cutting block was then removed and the cut was checked for symmetry. The resected bone was then measured to confirm the appropriate distal femoral resection. Next, the sizing guide was then placed and set for 3 external rotation based off of the epicondylar axis and Nelson's line. Pins were then placed and the drill holes, and the femur was sized with the sizing stylus. The pins were then removed, and the sizing guide was then removed. The spikes of the appropriate size femoral block was then placed into the predrilled holes, and malleted into place. Two 45 mm pins were then placed into the fixation holes on the cutting block. An julia wing was then used to ensure there would be no notching with the anterior cut. The anterior condyles were cut without notching. The anterior chord cut was then performed, followed by the posterior cut, posterior chamfer cut, and the anterior chamfer cut. The collateral ligaments were protected during the entire process. The cutting block was then removed. Any remaining bone and osteophytes were removed from the femur with a Ronguer. Attention was then directed to the tibia. The remaining ACL was removed with a Ronguer, and the tibia was then gently subluxed forward with a large bent knee retractor. Any remaining menisci were excised. The posterior lateral corner was cauterized in order to coagulate the lateral geniculate artery. The extra medullary tibial cutting guide was then placed, set for the appropriate rotation, slope, and depth of resection. The proximal tibia cutting guide was then pinned in place. Proximal tibia was then cut and sized. A curved osteotome was then used to remove any posterior osteophytes from the distal femur. The femoral trial was placed. A narrow saw blade was then used to remove the anterior intracondylar femoral bone. The CR notch trial was then placed. The tibial trial was placed with the appropriate-sized insert. The knee was able to fully extend and flex to 130 and was stable throughout all range of motion. The knee was then extended and the patella was everted. Patella was then measured, and then using an osteotomy guide, the patella was cut at the appropriate level. The patellar component was sized. The patellar drill guide was placed and the patella was drilled. The patella trial was then placed. The knee was then taken through range of motion with the patella trial and the patella tracked normally using the no thumbs technique. The patella trial was then removed. The knee was then flexed and lug holes were drilled through the femoral trial and the femoral trial was then removed. The tibial was then re- exposed, and the tibial broach guide was then pinned in place after it was set for the appropriate rotation to allow for the most coverage without overhang. The tibia was then reamed and broached. The femoral canal was plugged with autologous bone. The cut surfaces of bone were then irrigated with pulsatile lavage. The knee was also irrigated with Irrisept solution. The components were then opened, the cement was mixed. Cement was placed on the backside of the femoral, tibial, and patellar components. Cement was then applied to the tibial surface and pressurized into the surface using finger pressurization technique. The tibial component was then applied and excess cement was removed after it was impacted securely noted to be flush with the cut surface. In similar fashion, the cement was applied to the cut femoral surface, pressurized and using finger pressurization the component was impacted in place. Excess cement was removed. The polyethylene spacer was then implanted and locked into position. Patellar component was then applied in a similar technique and the patellar clamp was used to hold patella in place while the cement hardened. The knee was held in full extension while the cement hardened. Once the cement had fully hardened, the knee was reinspected. Any other cement extrusion was removed the final range of motion testing showed range of motion from 0-130 with excellent stability, both medial and laterally and appropriate alignment of the leg. Patella tracked normally. After the cemented hardened, the tourniquet was released and hemostasis was obtained. A second gram of transexamic acid was given intravenously. The knee was again irrigated. The knee was again taken through range of motion and found to be stable throughout all range of motion of 0-130, and the patella tracked normally. The fascia was then closed with 0 Vicryl followed by #2 strata fix suture. The subcutaneous tissue was closed with 3-0 Vicryl and 3-0 strata fix. Exofin glue was used for the skin and placed with the knee in flexion. After the glue had dried, and Optafoam silver impregnated dressing was applied. A lightly compressive dressing was applied using web roll and Darien wrap. Patient was then transferred to the stretcher and taken to recovery room in stable condition. Sponge and needle counts were correct. The executive assistant ONDINA Harmon was required due the complexity surgery and the need for a skilled surgical tech. She assisted in positioning, draping, retraction, and closure of the wound.
[2023-12-22] MEDS: ROPIVACAINE 1,100 MG, SODIUM CHLORIDE 0.9% 500 ML 330 ML, EMPTY PAIN BALL 1 EACH MISCELLANE PRN (12:19)
--- NOTE | 2023-12-22 12:41 | XR ---
EXAMINATION TYPE: XR knee limited 2 views RT DATE OF EXAM: 12/22/2023 Comparison: None Clinical History: 73-year-old female Evaluation for Postop abnormality and alignment Findings: Images show placement of right total knee arthroplasty. Both distal femoral and proximal tibial compo nents of the prosthesis are well seated without periprosthetic fracture. Alignment grossly anatomic. Anterior soft tissue swelling with scattered soft tissue air as well as intra-articular air related t o recent operation. Impression: Uncomplicated postoperative appearance right total knee arthroplasty.
[2023-12-22] MEDS: LACTATED RINGERS 1,000 ML IV SCH (13:15)
[2023-12-22] MEDS: DEXAMETHASONE SOD PHOSPHATE 4 MG/ML 1 ML VIAL IV ONE (13:15)
[2023-12-22] MEDS: ONDANSETRON 4 MG/2 ML VIAL IVP ONE (13:15)
[2023-12-22] MEDS ORDERED: ALBUTEROL NEBULIZED 2.5 MG/3 ML INHALATION PRN (13:50)
[2023-12-22] MEDS: HYDROcodone/APAP 7.5-325MG 1 EACH TAB PO PRN ×2 (15:29→20:43)
--- NOTE | 2023-12-22 16:30 | P.CONS ---
History of Present Illness - Reason for Consult Consult date: 12/22/23 Medical Management Requesting physician: Hernan Ortiz - History of Present Illness History of Presenting Illness: Patient is a very pleasant 73-year-old female with a past medical history of CAD status post stenting, hypertension, hyperlipidemia, COPD, and nicotine dependence. She is currently admitted under orthopedic surgery team status post right total knee arthroplasty. Surgical procedure was completed by Dr. Ortiz secondary to severe osteoarthritis of the right knee. We were consulted for medical management throughout hospitalization. Patient seen and fully evaluated in room 472 shortly after completion of surgical procedure. Patient ANO x 4 and reports feeling "much better than I thought I would." Patient has been eating saltine crackers and drinking fluids and tolerating well without any reports of postoperative nausea or vomiting. She reports currently postoperative pain is controlled and has not yet been up to ambulate to restroom. Patient denies having any chest pain, palpitations, shortness of breath, headache, lightheadedness, dizziness, or experiencing any numbness/tingling/weakness in her extremities. Review of systems: Pertinent positives and negatives as discussed in HPI, a complete review of systems was performed and all other systems are negative. Physical exam: Vital signs reviewed and stable. General: Nontoxic, no distress and appears stated age. Derm: Skin warm and dry, normal coloration for ethnicity. Head: Atraumatic, normocephalic and symmetric. Eyes: EOM's intact, no lid lag, and anicteric sclera Mouth: no lip lesions, mucus membranes moist Cardiovascular: regular rate and rhythm with normal S1S2, systolic murmur, positive posterior tibial pulses bilaterally, and cap refill < 2 seconds. Lungs: Respirations even, regular, and unlabored on room air. Lungs CTA bilaterally, no rhonchi, no rales, no wheezing, and no accessory muscle usage. Abdominal: soft, nontender to palpation, no guarding, no appreciable organomegaly Ext: Movement and sensation intact. No gross muscle atrophy, no edema, no contractures Neuro: Speech clear, face symmetrical and CN II-XII grossly intact with no noted focal neuro deficits Psych: Alert and oriented to person, place, time, and situation. Appropriate and pleasant affect. Assessment and Plan of Care: Status post right total knee arthroplasty -Management per primary admitting orthopedic surgery team including DVT prophylaxis, pain management, wound/dressing management, weightbearing, and PT/OT. -Currently DVT prophylaxis with aspirin 325 mg twice daily. Hypertension Hyperlipidemia History of CAD status post stenting x 2 -Continue home medication regimen with Vasotec 10 mg daily, hydrochlorothiazide 25 mg daily, isosorbide mononitrate 30 mg daily, metoprolol 25 mg daily, and simvastatin 80 mg nightly. COPD, not in acute exacerbation Nicotine dependence -Patient to continue Ventolin inhaler 4 times daily as needed for wheezing/shortness of breath. -Recommend smoking cessation, patient was offered a nicotine patch but declined. Vital signs reviewed and stable. Blood pressure 97/49, heart rate 73, respiratory rate 16, temp 97.7 F, and SpO2 of 95% on 2 L. Thank you for allowing us to participate in the care of this pleasant patient. Do not hesitate to contact us with questions. Someone can be reached from the [facility] hospitalist group all hours of the day at [phone] or via inSelly. Patient was seen independently by Nurse Practitioner. This document was prepared using [employer] dictation software. Please allow for errors in industrial hire sales assistant while rare they do occur. Luis Enrique Owens NP rendered care for this patient independently, reviewed the findings and plan as documented in the note above. I did not physically speak with or examine the patient on this date. 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-limited motion History of Any Multi-Drug Resistant Organisms: None Reported Past Surgical History: Section, Heart Catheterization With Stent, Hysterectomy, Joint Replacement Additional Past Surgical History / Comment(s): heart stents x2,lt hip replaced, trh Past Anesthesia/Blood Transfusion Reactions: No Reported Reaction, Motion Sickness Date of Last Stent Placement:: Past Psychological History: Anxiety Smoking Status: Current every day smoker Past Alcohol Use History: None Reported Additional Past Alcohol Use History / Comment(s): started smoking approx at age 18,1ppd Past Drug Use History: None Reported - Past Family History Mother Family Medical History: Cancer Additional Family Medical History / Comment(s): lung Father Additional Family Medical History / Comment(s): alcoholism Medications and Allergies Home Medications Medication Instructions Recorded Confirmed Type Aspirin 81 mg PO DAILY 07/31/17 12/22/23 History Cholecalciferol (Vitamin D3) 2,000 unit PO DAILY 07/31/17 12/22/23 History [Vitamin D3] Enalapril [Vasotec] 10 mg PO 1700 07/31/17 12/22/23 History Isosorbide Mononitrate [Isosorbide 30 mg PO QAM 07/31/17 12/22/23 History Mononitrate ER] Metoprolol Succinate (ER) [Toprol 25 mg PO QAM 07/31/17 12/22/23 History Xl] Multivitamins, Thera [Multivitamin 1 tab PO DAILY 07/31/17 12/22/23 History (formulary)] Simvastatin 80 mg PO HS 07/31/17 12/22/23 History hydroCHLOROthiazide [Hydrodiuril] 25 mg PO DAILY 07/31/17 12/22/23 History Albuterol Inhaler [Ventolin Hfa 2 puff INHALATION RT-QID PRN 01/18/20 12/22/23 History Inhaler] Escitalopram [Lexapro] 20 mg PO 1700 12/22/23 12/22/23 History Ibuprofen [Advil] 200 mg PO Q6HR PRN 12/22/23 12/22/23 History Mirtazapine 15 mg PO HS 12/22/23 12/22/23 History Allergies Allergy/AdvReac Type Severity Reaction Status Date / Time sulfamethoxazole Allergy rash,nose Verified 12/22/23 07:37 [From Bactrim] bleeds trimethoprim [From Bactrim] Allergy rash,nose Verified 12/22/23 07:37 bleeds amoxicillin [From Augmentin] AdvReac Nausea & Verified 12/22/23 07:37 Vomiting clavulanic acid AdvReac Nausea & Verified 12/22/23 07:37 [From Augmentin] Vomiting Physical Exam Vitals: Vital Signs Temp Pulse Resp BP Pulse Ox 12/22/23 12:25 73 16 97/49 95 12/22/23 12:10 75 16 95/43 93 L 12/22/23 11:55 74 16 95/44 94 L 12/22/23 11:40 73 16 98/56 98 12/22/23 11:25 97.2 F L 84 16 106/52 98 12/22/23 09:25 83 16 121/51 93 L 12/22/23 07:43 97.3 F L 93 20 108/53 93 L Intake and Output 12/21/23 12/22/23 12/22/23 22:59 06:59 14:59 Intake Total 1251 Output Total 25 Balance 1226 Intake: IV 1251 Output: Estimated Blood Loss 25 Other: Weight 90.2 kg
[2023-12-22] MEDS: ESCITALOPRAM 20 MG TAB PO SCH (16:34)
[2023-12-22] MEDS: lisinopriL 20 MG TAB PO SCH (16:34)
[2023-12-22] MEDS: SENNOSIDES-DOCUSATE SODIUM 1 EACH TAB PO SCH (20:43)
[2023-12-22] MEDS: ATORVASTATIN 40 MG TAB PO SCH (20:43)
[2023-12-22] MEDS: ASPIRIN 325 MG TAB PO SCH (20:43)
[2023-12-22] MEDS: MIRTAZAPINE 15 MG TAB PO SCH (20:43)
[2023-12-22] MEDS: SODIUM CHLORIDE 0.9% 1,000 ML IV SCH (20:50)
--- NOTE | 2023-12-23 07:38 | P.PN ---
Subjective Progress Note Date: 12/23/23 This is a 73-year-old fe male who is status post right total knee arthroplasty. This is postoperative day #1 And patient is seen and evaluated at bedside with Dr. Hernan Ortiz. Patient states that she is doing well and she denies any new complaints today. Objective - Vital Signs Vital signs: Vital Signs Temp 97.7 F 12/23/23 02:00 Pulse 75 12/23/23 02:00 Resp 16 12/23/23 02:00 BP 122/62 12/23/23 02:00 Pulse Ox 94 L 12/23/23 02:00 FiO2 Intake & Output 12/22/23 12/23/23 12/23/23 18:59 06:59 18:59 Intake Total 1251 Output Total 25 Balance 1226 Weight 90.2 kg Intake: IV 1251 Output: Estimated Blood Loss 25 Other: Voiding Method Toilet # Voids 0 1 - Exam Vital signs are stable. Patient is in no acute distress and is alert and oriented 3. Calf is soft and nontender to palpation. Dressing is clean, dry, and intact. Patient has full foot and ankle motion without pain or difficulty. Sensation intact. Neurovascular status and circulatory status are intact. Assessment and Plan (1) Osteoarthritis of right knee Current Visit: Yes Status: Acute Code(s): M17.11 - UNILATERAL PRIMARY OSTEOARTHRITIS, RIGHT KNEE SNOMED Code(s): 399928042587697 (2) S/P total knee arthroplasty Current Visit: Yes Status: Acute Code(s): Z96.659 - PRESENCE OF UNSPECIFIED ARTIFICIAL KNEE JOINT SNOMED Code(s): 7317076053267 Plan: #1 Continue with routine postoperative care and pain control, leave dressing in place for 7 days. #2 Anticoagulation with aspirin. #3 Physical therapy today. #4 Appreciate input from internal medicine. #5 Anticipate discharge home with home care or to ECF in the next 24-48 hours.
[2023-12-23] MEDS: ISOSORBIDE MONONITRATE ER 30 MG TAB.ER.24H PO SCH (08:43)
[2023-12-23] MEDS: hydroCHLOROthiazide 25 MG TAB PO SCH (08:44)
[2023-12-23] MEDS: METOPROLOL SUCCINATE (ER) 25 MG TAB.ER.24H PO SCH (08:44)
[2023-12-23] MEDS: MULTIVITAMINS, THERA 1 EACH TAB PO SCH (08:44)
[2023-12-23 09:29] LABS: Basophils # (A) 0.01 X 10*3/uL (0.00-0.10); Basophils % (A) 0.1 %; Eosinophils # (A) 0 X 10*3/uL (0.04-0.35); Eosinophils % (A) 0 %; HCT 39.1 % (37.2-46.3); HGB 12.8 g/dL (12.0-15.0); Lymphocytes # (A) 2.51 X 10*3/uL (0.90-5.00); Lymphocytes % (A) 19.4 %; MCH 31.1 pg (27.0-32.0); MCHC 32.7 g/dL (32.0-37.0); MCV 95.1 FL (80.0-97.0); Mean Platelet Volume 9.2 FL (9.5-12.2); Monocytes # (A) 1.11 X 10*3/uL (0.20-1.00); Monocytes % (A) 8.6 %; NRBC Per 100 WBC 0 X 10*3/uL (0.00-0.01); Neutrophils # (A) 9.23 X 10*3/uL (1.80-7.70); Neutrophils % (A) 71.5 %; Platelet Count 216 X 10*3/uL (140-440); RBC 4.11 X 10*6/uL (4.10-5.20); RDW 13.1 % (11.5-14.5); WBC 12.91 X 10*3/uL (4.50-10.00)
[2023-12-23 09:47] LABS: BUN/Creat Ratio 14.71 Ratio (12.00-20.00); Blood Urea Nitrogen 10.3 mg/dL (9.0-27.0); Calcium 8.7 mg/dL (8.7-10.3); Carbon Dioxide 24.8 mmol/L (21.6-31.8); Chloride 103 mmol/L (96-109); Glucose 117 mg/dL (70-110); Magnesium 1.8 mg/dL (1.5-2.4); Potassium 4.3 mmol/L (3.5-5.5); Sodium 140 mmol/L (135-145)
--- NOTE | 2023-12-23 13:04 | P.PN ---
Progress Note - Text 12/23/23 644am 73-year-old male status post total knee replacement. Patient has a On-Q pump for postop pain control with suture-ligated she is in auto with a VAS of 8, is also receiving oral medication for pain control. Plan continue On-Q pump infusion
--- NOTE | 2023-12-23 13:55 | P.PN ---
Subjective Progress Note Date: 12/23/23 Hospital Course: Patient is a very pleasant 73-year-old female with a past medical history of CAD status post stenting, hypertension, hyperlipidemia, COPD, and nicotine dependence. She is currently admitted under orthopedic surgery team status post right total knee arthroplasty. Surgical procedure was completed by Dr. Ortiz secondary to severe osteoarthritis of the right knee. We were consulted for medical management throughout hospitalization. Physical exam: Patient seen and fully evaluated at bedside this morning. She reports pain is much worse today than yesterday. Patient reports feeling tight and difficulty with movement. She denies any other complaints at this time. Denies postoperative nausea or vomiting and reports urinating without difficulties. Patient visiting with family at bedside. Vital signs reviewed and stable. General: Nontoxic, no distress and appears stated age. Derm: Skin warm and dry, normal coloration for ethnicity. Head: Atraumatic, normocephalic and symmetric. Eyes: EOM's intact, no lid lag, and anicteric sclera Mouth: no lip lesions, mucus membranes moist Cardiovascular: regular rate and rhythm with normal S1S2, systolic murmur, positive posterior tibial pulses bilaterally, and cap refill < 2 seconds. Lungs: Respirations even, regular, and unlabored on room air. Lungs CTA bilaterally, no rhonchi, no rales, no wheezing, and no accessory muscle usage. Abdominal: soft, nontender to palpation, no guarding, no appreciable organomegaly Ext: Movement and sensation intact. No gross muscle atrophy, no edema, no contractures. Postoperative dressing and ice pack in place to right knee. Neuro: Speech clear, face symmetrical and CN II-XII grossly intact with no noted focal neuro deficits Psych: Alert and oriented to person, place, time, and situation. Appropriate and pleasant affect. Assessment and Plan of Care: Status post right total knee arthroplasty -Management per primary admitting orthopedic surgery team including DVT prophylaxis, pain management, wound/dressing management, weightbearing, and PT/OT. -Currently DVT prophylaxis with aspirin 325 mg twice daily. Hypertension Hyperlipidemia History of CAD status post stenting x 2 -Continue home medication regimen with Vasotec 10 mg daily, hydrochlorothiazide 25 mg daily, isosorbide mononitrate 30 mg daily, metoprolol 25 mg daily, and simvastatin 80 mg nightly. COPD, not in acute exacerbation Nicotine dependence -Patient to continue Ventolin inhaler 4 times daily as needed for wheezing/shortness of breath. -Recommend smoking cessation, patient was offered a nicotine patch but declined. Data reviewed: Postoperative labs reviewed. CBC showing mild leukocytosis with WBC count of 12.91 otherwise normal findings. BMP revealing slightly elevated anion gap of 12.2 otherwise normal findings. Blood glucose 117. Magnesium 1.8. Blood pressure 106/52, heart rate 70, respiratory rate 16, temp 97.9 F, and SpO2 of 91% on room air. Thank you for allowing us to participate in the care of this pleasant patient. Do not hesitate to contact us with questions. Someone can be reached from the [facility] hospitalist group all hours of the day at [phone] or via [employer]. Patient was seen independently by Nurse Practitioner. This document was prepared using [employer] dictation software. Please allow for errors in marketing systems analyst while rare they do occur. I reviewed the documentation as provided by the KEO above, who is the original author of this note. I agree with the documented assessment and plan, with the following changes: none Objective - Vital Signs Vital signs: Vital Signs Temp 97.9 F 12/23/23 07:19 Pulse 70 12/23/23 07:19 Resp 16 12/23/23 07:19 BP 106/52 12/23/23 07:19 Pulse Ox 91 L 12/23/23 07:19 FiO2 Intake & Output 12/22/23 12/23/23 12/23/23 18:59 06:59 18:59 Intake Total 1251 Output Total 25 Balance 1226 Weight 90.2 kg Intake: IV 1251 Output: Estimated Blood Loss 25 Other: Voiding Method Toilet # Voids 0 1 - Labs CBC & Chem 7: 12/23/23 04:20 12/23/23 04:20
[2023-12-23] MEDS: HYDROmorphone 0.5 MG/0.5 ML SYRINGE IVP PRN (20:00)
[2023-12-24 07:29] VITALS: PULSE 106; RESP 15; TEMP 98.3
[2023-12-24 09:04] VITALS: BP 127/69
--- NOTE | 2023-12-24 10:10 | P.PN ---
Subjective Progress Note Date: 12/24/23 This is a 73-year-old female who is status post right total knee arthroplasty. This is postoperative day #2 And patient is seen and evaluated at bedside today. Patient states that she is doing well, but the right knee is quite sore. Patient denies any new complaints today. Objective - Vital Signs Vital signs: Vital Signs Temp 98.3 F 12/24/23 07:28 Pulse 106 H 12/24/23 07:28 Resp 15 12/24/23 07:28 BP 127/69 12/24/23 09:03 Pulse Ox 92 L 12/24/23 07:28 FiO2 Intake & Output 12/23/23 12/24/23 12/24/23 18:59 06:59 18:59 Other: Voiding Method Toilet # Voids 4 2 - Exam Vital signs are stable. Patient is in no acute distress and is alert and oriented 3. Calf is soft and nontender to palpation. Dressing is clean, dry, and intact. Patient has full foot and ankle motion without pain or difficulty. Sensation intact. Neurovascular status and circulatory status are intact. - Labs CBC & Chem 7: 12/23/23 04:20 12/23/23 04:20 Assessment and Plan (1) Osteoarthritis of right knee Current Visit: Yes Status: Acute Code(s): M17.11 - UNILATERAL PRIMARY OSTEOARTHRITIS, RIGHT KNEE SNOMED Code(s): 374382900748612 (2) S/P total knee arthroplasty Current Visit: Yes Status: Acute Code(s): Z96.659 - PRESENCE OF UNSPECIFIED ARTIFICIAL KNEE JOINT SNOMED Code(s): 5497248109046 Plan: #1 Continue with routine postoperative care and pain control, leave dressing in place for 7 days. #2 Anticoagulation with aspirin. #3 Physical therapy today. #4 Appreciate input from internal medicine. #5 Anticipate discharge home with home care or to ECF in the next 24-48 hours.
--- NOTE | 2023-12-24 11:38 | P.PN ---
Subjective Progress Note Date: 12/24/23 Principal diagnosis: knee pain patient has had a lot of knee pain last night, could not sleep because of it. She was medicated with pain medications this morning. Currently doing better. Objective - Vital Signs Vital signs: Vital Signs Temp 98.3 F 12/24/23 07:28 Pulse 106 H 12/24/23 07:28 Resp 15 12/24/23 07:28 BP 127/69 12/24/23 09:03 Pulse Ox 92 L 12/24/23 07:28 FiO2 Intake & Output 12/23/23 12/24/23 12/24/23 18:59 06:59 18:59 Other: Voiding Method Toilet # Voids 4 2 - Exam Constitutional: No acute distress, conversant, pleasant Eyes:Anicteric sclerae, moist conjunctiva, no lid-lag, PERRLA, ENMT: Oropharynx clear, no erythema, exudates Neck: Supple, FROM, no masses, or JVD, No carotid bruits, No thyromegaly Lungs: Clear to auscultation, Clear to percussion, Normal respiratory effort, no accessory muscle use Cardiovascular: Heart regular in rate and rhythm, No murmurs, gallops, or rubs, No peripheral edema Abdominal: Soft, Nontender, no guarding, rebound or rigidity, Normoactive bowel sounds, No hepatomegaly, No splenomegaly, No palpable mass Skin: Normal temperature, tone, texture, turgor, no induration, No subcutaneous nodules, No rash, lesions, No ulcers Extremities: No digital cyanosis, No clubbing, Pedal pulses intact and symmetrical, Radial pulses intact and symmetrical, No calf tenderness Psychiatric: Alert and oriented to person, place and time, appropriate affect, intact judgement Neuro: Muscles Strength 5/5 in all 4 extremities, Sensation to light touch grossly present throughout, Cranial nerves II-XII grossly intact, no focal sensory deficits - Labs CBC & Chem 7: 12/23/23 04:20 12/23/23 04:20 Assessment and Plan Plan: Status post right total knee arthroplasty -Management per primary admitting orthopedic surgery team including DVT prophylaxis, pain management, wound/dressing management, weightbearing, and PT/OT. -Currently DVT prophylaxis with aspirin 325 mg twice daily. Hypertension Hyperlipidemia History of CAD status post stenting x 2 -Continue home medication regimen with Vasotec 10 mg daily, hydrochlorothiazide 25 mg daily, isosorbide mononitrate 30 mg daily, metoprolol 25 mg daily, and simvastatin 80 mg nightly. COPD, not in acute exacerbation Nicotine dependence -Patient to continue Ventolin inhaler 4 times daily as needed for wheezing/shortness of breath. -Recommend smoking cessation, patient was offered a nicotine patch but declined. clear to discharge by medicine
--- NOTE | 2023-12-24 12:42 | P.DS ---
Providers Expected date of discharge: 12/24/23 Attending physician: Hernan Ortiz Consults: 12/22/23 13:34 Consult Physician Routine Consulting Provider: Stefan Ulloa Consult Reason/Comments: Medical management Do you want consulting provider notified?: Already Contacted Primary care physician: Viet Pack MD - Discharge Diagnosis(es) (1) Osteoarthritis of right knee Current Visit: Yes Status: Acute (2) S/P total knee arthroplasty Current Visit: Yes Status: Acute Hospital Course: This is a 73-year-old female with known history of degenerative arthritis of the right knee. The patient presents for evaluation. After discussion and consideration patient elects to proceed with total knee arthroplasty. The patient is seen preoperatively by Dr. Ortiz and cleared for surgery. Patient is admitted to [facility] on 12/22/2023 for total knee arthroplasty. The procedures performed without complication or sequelae. The patient is doing well postoperatively. Labs and vital signs are stable on day of discharge. On day of discharge patient's knee incision is healing well. There is minimal erythema. There is no drainage noted at this time. There is minimal soft tissue swelling to the hip and thigh. Patient has full foot and ankle motion without difficulty or pain. Neurovascular status to the right lower extremity is intact. Patient is discharged to rehab in good condition. Please see med rec for accurate list of home medications. Plan - Discharge Summary Discharge Rx Participant: Yes New Discharge Prescriptions: New Aspirin 325 mg PO BID #60 tab HYDROcodone/APAP 7.5-325MG [[place] 7.5-325] 1 - 2 tab PO Q6H PRN #32 tab PRN Reason: Pain Sennosides [Senokot] 2 tab PO DAILY PRN #60 tablet PRN Reason: Constipation Continue Cholecalciferol (Vitamin D3) [Vitamin D3] 2,000 unit PO DAILY Multivitamins, Thera [Multivitamin (formulary)] 1 tab PO DAILY Simvastatin 80 mg PO HS Metoprolol Succinate (ER) [Toprol XL] 25 mg PO QAM Isosorbide Mononitrate [Isosorbide Mononitrate ER] 30 mg PO QAM hydroCHLOROthiazide [Hydrodiuril] 25 mg PO DAILY Enalapril [Vasotec] 10 mg PO 1700 Albuterol Inhaler [Ventolin Hfa Inhaler] 2 puff INHALATION RT-QID PRN PRN Reason: Dyspnea Mirtazapine 15 mg PO HS Ibuprofen [Advil] 200 mg PO Q6HR PRN PRN Reason: Pain Escitalopram [Lexapro] 20 mg PO 1700 Discontinued Aspirin 81 mg PO DAILY Discharge Medication List Cholecalciferol (Vitamin D3) [Vitamin D3] 2,000 unit PO DAILY 07/31/17 [History] Enalapril [Vasotec] 10 mg PO 1700 07/31/17 [History] Isosorbide Mononitrate [Isosorbide Mononitrate ER] 30 mg PO QAM 07/31/17 [History] Metoprolol Succinate (ER) [Toprol XL] 25 mg PO QAM 07/31/17 [History] Multivitamins, Thera [Multivitamin (formulary)] 1 tab PO DAILY 07/31/17 [History] Simvastatin 80 mg PO HS 07/31/17 [History] hydroCHLOROthiazide [Hydrodiuril] 25 mg PO DAILY 07/31/17 [History] Albuterol Inhaler [Ventolin Hfa Inhaler] 2 puff INHALATION RT-QID PRN 01/18/20 [History] Escitalopram [Lexapro] 20 mg PO 1700 12/22/23 [History] Ibuprofen [Advil] 200 mg PO Q6HR PRN 12/22/23 [History] Mirtazapine 15 mg PO HS 12/22/23 [History] Aspirin 325 mg PO BID #60 tab 12/24/23 [Rx] HYDROcodone/APAP 7.5-325MG [[place] 7.5-325] 1 - 2 tab PO Q6H PRN #32 tab 12/24/23 [Rx] Sennosides [Senokot] 2 tab PO DAILY PRN #60 tablet 12/24/23 [Rx] Follow up Appointment(s)/Referral(s): Earnestine Bunch PAC [PHYSICIAN PC INSTALLATION ENGINEER] - 01/02/24 2:[address] [facility], [NON-STAFF] - As Needed Activity/Diet/Wound Care/Special Instructions: Weightbearing as tolerated with a walker. CPM 5-6h daily as tolerated. Leave dressing intact. Dressing may be removed by home care nurse or by patient in 7 days. Then change dressing twice daily until follow up. May shower with initial dressing intact and after removal. If dressing become saturated, please remove. Recommend use of compression stockings daily until follow up to help prevent swelling and blood clots. May remove at night before sleeping. Please take aspirin 325mg twice daily for 30 days to prevent blood clots. Please follow up with [facility] and call with any questions or concerns, . Discharge Disposition: TRANSFER TO SNF/ECF
== END 2023-12-24 15:26 ==
LOC: OR 07:13 → 4SSUR 12:12 → OR 12-24 15:26
PROVIDERS: ATTEND Orthopaedic Surgery
CPT/HCPCS: 64448; 64999; 80048; 83735; 85025

== ENCOUNTER → 2024-02-27 | Outpatient (CLI) | payer MEDICARE ==
[2024-02-27 16:20] LABS: ALT 22 U/L (8-44); AST 24 U/L (13-35); Albumin 4.1 g/dL (3.8-4.9); Albumin/Globulin Ratio 1.78 Ratio (1.60-3.17); Alkaline Phosphatase 121 U/L (41-126); BUN/Creat Ratio 10.88 Ratio (12.00-20.00); Blood Urea Nitrogen 8.7 mg/dL (9.0-27.0); Calcium 9.6 mg/dL (8.7-10.3); Carbon Dioxide 26.7 mmol/L (21.6-31.8); Chloride 100 mmol/L (96-109); Globulin 2.3 g/dL (1.6-3.3); Glucose 111 mg/dL (70-110); LDL Cholesterol,Calculated 59.3 mg/dL (0.0-131.0); Potassium 4.4 mmol/L (3.5-5.5); Sodium 142 mmol/L (135-145); Total Bilirubin 1.1 mg/dL (0.3-1.2); Total Protein 6.4 g/dL (6.2-8.2)
== END | disposition home or self-care (01) ==
LOC: LABWHC1 09:45
PROVIDERS: ATTEND Internal Medicine Interventional Cardiology
DX: I10 Essential (primary) hypertension (principal); E78.2 Mixed hyperlipidemia
CPT/HCPCS: 36415; 80053; 80061

== ENCOUNTER → 2024-08-24 | Outpatient (CLI) | payer MEDICARE ==
[2024-08-24 19:25] LABS: ALT 24 U/L (8-44); AST 31 U/L (13-35); LDL Cholesterol,Calculated 63.1 mg/dL (0.0-131.0)
== END | disposition home or self-care (01) ==
LOC: LABWHC1 13:13
PROVIDERS: ATTEND Internal Medicine Interventional Cardiology
DX: E78.2 Mixed hyperlipidemia (principal)
CPT/HCPCS: 36415; 80061; 84450; 84460

== ENCOUNTER → 2024-11-26 | Outpatient (CLI) | payer MEDICARE ==
--- NOTE | 2024-11-26 18:04 | MM ---
Reason for Exam: Screening (asymptomatic). Last mammogram was performed 2 year(s) and 3 month(s) ago. Patient History: Menarche at age 11. First Full-Term at age 20. Left ovary removed at age 38. Right ovary removed at age 38. Hysterectomy at age 38. Postmenopausal. Patient has history of breast feeding. Patient used Hormonal Contraceptives for 13 years. Risk Values: Maria De Jesus 5 year model risk: 1.6%. NCI Lifetime model risk: 3.4%. Prior Study Comparison: 03/11/2017 Bilateral Screening Mammogram, [facility]. 03/31/2018 Bilateral Screening Mammogram, [facility]. 05/19/2019 Bilateral Screening Mammogram, [facility]. 09/21/2021 Bilateral MG 3D screening mammo w/cad, [facility]. 09/24/2022 Bilateral MG 3D screening mammo w/cad, [facility]. Tissue Density: The breasts are almost entirely fatty. Findings: Analyzed By CAD. Benign secretory calcifications on the left. There is no suspicious group of microcalcifications or new suspicious mass in either breast. Overall Assessment: Benign, BI-RAD 2 Management: Screening Mammogram of both breasts in 1 year. . Patient should continue monthly self-breast exams. A clinical breast exam by your physician is recommended on an annual basis. This exam should not preclude additional follow-up of suspicious palpable abnormalities. Note on Maria De Jesus scores and lifetime risk: 1. A Maria De Jesus score greater than 3% is considered moderate risk. If this is the case, consider specialist referral to assess eligibility for a risk reducing agent. 2. If overall lifetime risk for the development of breast cancer is 20% or higher, the patient may qualify for future screening with alternating mammogram and breast MRI. [facility], , 11/26/2024 6:01 PM. Electronically signed and approved by: Greta Avelar M.D. Radiologist
== END | disposition home or self-care (01) ==
LOC: RADMAMWWP 10:59
PROVIDERS: ATTEND Family Medicine
DX: Z12.31 Encounter for screening mammogram for malignant neoplasm of breast (principal); R92.313 Mammographic fatty tissue density, bilateral breasts; R92.1 Mammographic calcification found on diagnostic imaging of breast; Z78.0 Asymptomatic menopausal state; Z92.0 Personal history of contraception
CPT/HCPCS: 77063; 77067

== ENCOUNTER → 2024-11-26 | Outpatient (CLI) | payer MEDICARE ==
--- NOTE | 2024-11-26 11:27 | CTL ---
EXAMINATION TYPE: CT Low Dose Lung DATE OF EXAM ORDERED: 11/26/2024 COMPARISON: 12/19/2022 CLINICAL INDICATION: Female, 74 years old with history of Z87.891 personal hx tobacco use; PHH, lung CA screening, Lung cancer screening, History of Smoking/tobacco use. TECHNIQUE: Low dose computed tomography scan was performed through the chest at 1 mm thick sections a nd reconstructed images in multiple planes at 1 mm and [address] DLP: [address] CTDI: 2.6 mGy Automated exposure control for dose reduction was used. CT DIAGNOSTIC QUALITY: Satisfactory FINDINGS: There is a stable 6 mm nodule in the right upper lobe posteriorly. Reference image 59, series 4. Hieu tional pulmonary micronodules are stable. Calcified granuloma. Mild emphysematous changes. No evidence of consolidative pneumonia or pulmonary edema. Subsegmental a pierre of consolidation right lower lobe likely related to scarring or atelectasis. There is mild interlobular septal along the periphery of the lung most typical of pulmonary fibrosis. Favor UIP type. Calcification near the hepatic capsule. Moderate coronary artery calcification. Aorta of normal calib er with dense calcification near the aortic valve and root. Trace amount of pericardial fluid. Mitral annular calcification. Stable subcentimeter short axis and borderline lymph nodes within the mediast inum. Lack of contrast limits assessment for hilar adenopathy. Small hiatal hernia. Cholelithiasis. Assessment abdomen limited due to artifact. There is degenerativ e changes of the spine. IMPRESSION: 1. Stable pulmonary nodules unchanged from prior exam. Recommend 12 month follow-up according to Flei schner Society guidelines. 2. COPD with findings suggestive of mild pulmonary fibrosis. Favor UIP type. 3. Extensive coronary artery calcifications. 4. Scattered areas of scarring or atelectasis favored over pneumonia. CT LUNG RAD AND CT CHEST RECOMMENDATION: S Modifier (other clinically significant findings): [facility], , 11/26/2024 11:25 AM
== END | disposition home or self-care (01) ==
LOC: RADCTMAIN 10:36
DX: Z87.891 Personal history of nicotine dependence (principal); J44.9 Chronic obstructive pulmonary disease, unspecified; I25.10 Atherosclerotic heart disease of native coronary artery without angina pectoris; R91.8 Other nonspecific abnormal finding of lung field
CPT/HCPCS: 71271